=== PATIENT | female | born 1935 | race Caucasian/White ===

== ENCOUNTER 2017-05-02 16:16 | Inpatient (IN) | payer OTHER ==
[2017-05-02] MEDS ORDERED: NS 1,000 ML IV ONE (17:17)
[2017-05-02] MEDS ORDERED: PANTOPRAZOLE SODIUM 40 MG in NS 100 ML IV ONE (17:18)
--- NOTE | 2017-05-02 17:21 | EDPHY ---
H & P Time Seen by Provider: 05/02/17 16:45 HPI/ROS: CHIEF COMPLAINT: Black diarrhea HISTORY OF PRESENT ILLNESS: This 82-year-old woman is on warfarin for atrial fibrillation. She presents with black stools and diarrhea since Tuesday morning 48 hours ago. It is associated with a little bit more dyspnea on exertion than usual but no abdominal pain or vomiting. No red blood per rectum. Symptoms moderate. 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 No aspirin or nonsteroidals. Diarrhea moderate, and not better or worse with anything. REVIEW OF SYSTEMS: Eye: no change in vision ENT: no sore throat Cardiac: no chest pain or syncope Pulmonary: no cough or SOB Abdomen: HPI, Musculoskeletal: Bilateral pedal edema and venous stasis changes, chronic Skin: no rash Neuro: no headache Constitutional: no fever : no urinary symptoms A comprehensive 10 point review of systems is otherwise negative aside from elements mentioned in the history of present illness. PAST MEDICAL HISTORY: Hypertension and atrial fibrillation Social history: Here with her daughter General Appearance: Alert and conversant, cooperative. Eyes: No scleral icterus. ENT, Mouth: Normal mucous membranes. Respiratory: Normal respiratory effort, breath sounds equal, lungs are clear to auscultation. Cardiovascular: Distant heart sounds, no murmur. Gastrointestinal: Abdomen is soft and non tender. Rectal exam shows black stool sent for Hemoccult. Neurological: Alert and oriented x3. Normally conversant. Face symmetric, normal movement and sensation in all extremities. Skin: Warm and dry, no rashes. Musculoskeletal: 3 to 4+ bilateral peripheral edema with some venous stasis changes, chronic. Psychiatric: Not agitated. Emergency Department course/MDM: Patient presents with signs and symptoms of acute upper gastrointestinal bleed. PCP is Mercedes Galeana. Protonix 40 mg IV, type and screen, hematocrit. Admit for upper endoscopy. 1728: Hematocrit on February 28 is 45, today it is 32. Smoking Status: Former smoker Constitutional: Initial Vital Signs Temperature (C) 37 C 05/02/17 16:17 Heart Rate 94 05/02/17 16:17 Respiratory Rate 18 05/02/17 16:17 Blood Pressure 136/74 H 05/02/17 16:17 O2 Sat (%) 97 05/02/17 16:17 O2 Delivery Mode Room Air Allergies/Adverse Reactions: Penicillins Allergy (Mild, Verified 05/02/17 16:27) Rash lisinopril Allergy (Verified 05/02/17 17:35) cough Home Medications: Medication Instructions Recorded Amiloride [Amiloride 5 MG (RX)] 10 mg PO DAILY 05/02/17 Aspirin EC [Aspirin EC 81 mg (*)] 81 mg PO DAILY 05/02/17 Bimatoprost [Lumigan] 1 drop EACHEYE HS 05/02/17 Diclofenac 0.1% [Voltaren 0.1% (*)] 1 drops LEFTEYE BID 05/02/17 Herbals/Supplements -Info Only 1 ea PO DAILY 05/02/17 Hydrochlorothiazide [HCTZ (*)] 25 mg PO DAILY 05/02/17 Metoprolol Succinate 50 mg PO DAILY 05/02/17 Multivitamins [Multivitamin (*)] 1 each PO DAILY 05/02/17 Ofloxacin [Ofloxacin] 1 drop RTEYE QID 05/02/17 Potassium Cl [Klor-Con 20 meq (*)] 20 meq PO DAILY 05/02/17 Vit A/Vit C/Vit E/Zinc/Copper 1 each PO DAILY 05/02/17 [Preservision Tablet] Warfarin Sodium [Coumadin 5MG (*)] 5 mg PO DAILY16 05/02/17 amLODIPine BESYLATE [Norvasc 5 mg 5 mg PO DAILY 05/02/17 (*)] prednisoLONE ACET 1% [Pred Forte 1 drops RTEYE QID 05/02/17 1% (*)] Medical Decision Making Differential Diagnosis: Differential for black stools considered including but not limited to food related, medication side effect, upper GI bleed, lower GI bleed. Consult/Admit Bed Type: [facility] 1735, [facility] 2046 - Data Points Laboratory Results: Laboratory Results 05/02/17 17:05 05/02/17 17:05 05/02/17 05/02/17 05/02/17 17:05 17:05 17:05 WBC 8.59 10^3/uL 10^3/uL (3.80-9.50) RBC 3.44 10^6/uL L 10^6/uL (4.18-5.33) Hgb 10.7 g/dL L g/dL (12.6-16.3) Hct 32.9 % L % (38.0-47.0) MCV 95.6 fL fL (81.5-99.8) MCH 31.1 pg pg (27.9-34.1) MCHC 32.5 g/dL g/dL (32.4-36.7) RDW 13.8 % % (11.5-15.2) Plt Count 193 10^3/uL 10^3/uL (150-400) MPV 8.9 fL fL (8.7-11.7) Neut % (Auto) 63.9 % % (39.3-74.2) Lymph % (Auto) 26.0 % % (15.0-45.0) Cass % (Auto) 8.3 % % (4.5-13.0) Eos % (Auto) 0.5 % L % (0.6-7.6) Baso % (Auto) 0.8 % % (0.3-1.7) Nucleat RBC Rel Count 0.0 % % (0.0-0.2) Absolute Neuts (auto) 5.50 10^3/uL 10^3/uL (1.70-6.50) Absolute Lymphs (auto) 2.23 10^3/uL 10^3/uL (1.00-3.00) Absolute Monos (auto) 0.71 10^3/uL 10^3/uL (0.30-0.80) Absolute Eos (auto) 0.04 10^3/uL 10^3/uL (0.03-0.40) Absolute Basos (auto) 0.07 10^3/uL 10^3/uL (0.02-0.10) Absolute Nucleated RBC 0.00 10^3/uL 10^3/uL (0-0.01) Immature Gran % 0.5 % % (0.0-1.1) Immature Gran # 0.04 10^3/uL 10^3/uL (0.00-0.10) PT 23.9 SEC H SEC (12.0-15.0) INR 2.12 H (0.83-1.16) APTT 32.6 SEC SEC (23.0-38.0) Sodium 139 mEq/L mEq/L (134-144) Potassium 3.7 mEq/L mEq/L (3.5-5.2) Chloride 103 mEq/L mEq/L (97-110) Carbon Dioxide 27 mEq/l mEq/l (22-31) Anion Gap 9 mEq/L mEq/L (8-16) BUN 25 mg/dL H mg/dL (7-23) Creatinine 0.9 mg/dL mg/dL (0.6-1.0) Estimated GFR > 60 Glucose 141 mg/dL H mg/dL (70-100) Calcium 9.8 mg/dL mg/dL (8.5-10.4) Medications Given: Discontinued Medications Sodium Chloride (Ns) 1,000 mls @ 0 mls/hr IV ONCE ONE; Wide Open PRN Reason: Protocol Stop: 05/02/17 17:18 Last Admin: 05/02/17 17:28 Dose: 1,000 mls Pantoprazole Sodium 40 mg/ (Sodium Chloride) 100 mls @ 200 mls/hr IV EDNOW ONE Stop: 05/02/17 17:47 Last Admin: 05/02/17 17:51 Dose: 100 mls Departure - Departure Disposition: [facility] Inpatient Acute Clinical Impression: Acute upper GI bleed Condition: Good
[2017-05-02 17:24] LABS: % IMMATURE GRANULYOCYTES 0.5 % (0.0-1.1); ABSOLUTE IMMATURE GRANULOCYTES 0.04 10^3/uL (0.00-0.10); ADD DIFF? NO; ADD MORPH? NO; ADD SCAN? NO; ATYPICAL LYMPHOCYTE FLAG 0 (0-99); FRAGMENT RBC FLAG 0 (0-99); HEMATOCRIT 32.9 % (38.0-47.0); HEMOGLOBIN 10.7 g/dL (12.6-16.3); LEFT SHIFT FLG 0 (0-99); LIPEMIA HEMOLYSIS FLAG 80 (0-99); MEAN CELL HEMOGLOBIN 31.1 pg (27.9-34.1); MEAN CELL HEMOGLOBIN CONCENTR. 32.5 g/dL (32.4-36.7); MEAN CELL VOLUME 95.6 fL (81.5-99.8); MEAN PLATELET VOLUME 8.9 fL (8.7-11.7); PLATELET CLUMPS FLAG 0 (0-99); PLATELET COUNT 193 10^3/uL (150-400); RED BLOOD CELL COUNT 3.44 10^6/uL (4.18-5.33); RED CELL DISTRIBUTION WIDTH 13.8 % (11.5-15.2)
[2017-05-02 17:32] LABS: INR 2.12 (0.83-1.16); PROTIME(PATIENT) 23.9 SEC (12.0-15.0)
[2017-05-02 17:33] LABS: APTT 32.6 SEC (23.0-38.0)
[2017-05-02 17:35] LABS: ANION GAP 9 mEq/L (8-16); CALCIUM 9.8 mg/dL (8.5-10.4); CARBON DIOXIDE 27 mEq/l (22-31); CHLORIDE 103 mEq/L (97-110); CREATININE 0.9 mg/dL (0.6-1.0); GLOMERULAR FILTRATION RATE > 60; GLUCOSE 141 mg/dL (70-100); POTASSIUM 3.7 mEq/L (3.5-5.2); SODIUM 139 mEq/L (134-144)
[2017-05-02] MEDS ORDERED: ACETAMINOPHEN 325 MG TAB PO PRN (18:53)
[2017-05-02] MEDS ORDERED: ONDANSETRON 4 MG/2 ML VIAL IVP PRN (18:53)
[2017-05-02] MEDS ORDERED: PROMETHAZINE HCL 25 MG/ML INJ IVP PRN (18:53)
[2017-05-02] MEDS ORDERED: PHYTONADIONE 2.5 MG/2.5 ML ORAL UDL PO ONE (18:57)
[2017-05-02] MEDS ORDERED: PHYTONADIONE 10 MG in NS 50 ML IV ONE (19:44)
[2017-05-02] MEDS: PHYTONADIONE 2.5 MG/2.5 ML ORAL UDL PO ONE ×2 (20:17→22:26)
--- NOTE | 2017-05-02 20:19 | GHP ---
[f rep st] HISTORY AND PHYSICAL DATE OF ADMISSION: 05/02/2017 CHIEF COMPLAINT: Black stools. HISTORY OF PRESENT ILLNESS: This is an 82-year-old female with history of atrial fibrillation on wa rfarin, who presented to the emergency department with black stools. She says that she developed asencio ving black stools yesterday and had between 8 and 10 bouts of watery, black diarrhea. This was not associated with any abdominal pain. She denies any NSAID use. She does take a baby aspirin per day . This has never happened to her before. Today, she had 3-4 black stools and still has not had any belly pain. She denies any chest pain. S he denies any dizziness or weakness. She came into the emergency department for further evaluation. PAST MEDICAL HISTORY: 1. Hypertension. 2. Atrial fibrillation on Coumadin. 3. Glaucoma. PAST SURGICAL HISTORY: 1. Cholecystectomy. 2. Hysterectomy. 3. Appendectomy. 4. Tonsillectomy. 5. Cataract surgery. HOME MEDICATIONS: Reviewed, refer to Info for details. ALLERGIES: Penicillin and lisinopril. SOCIAL HISTORY: She lives independently in [place]. She denies any alcohol, tobacco, or illicit drug use. She is a former smoker. FAMILY HISTORY: Reviewed and noncontributory. REVIEW OF SYSTEMS: A comprehensive 10-point review of systems was done and is negative except for a s mentioned in the HPI. PHYSICAL EXAMINATION: VITAL SIGNS: Blood pressure 120/65, pulse 72, respiratory rate 16, O2 satura tion 95% on room air. Temperature afebrile. GENERAL: No acute distress. HEART: S1, S2. LUNGS: Clear. No wheezes, rales, or rhonchi. ABDOMEN: Soft, nontender, nondistended. No guarding or re bound tenderness. Normoactive bowel sounds. EXTREMITIES: No clubbing or cyanosis. NEURO: Crania l nerves 2-12 grossly intact. No focal motor or sensory deficits. SKIN: Clear. No rashes. She h as no petechiae. HEAD: Normocephalic, atraumatic. EYES: PERRLA. NECK: Supple. No lymphadenopa thy. DIAGNOSTICS: WBC is 8.59, hemoglobin 10.7, hematocrit 32.9, platelets 193. INR 2.12. Sodium 139, potassium 3.7, chloride 103, BUN 25, creatinine 0.9, glucose 141. Stool occult blood was positive. ASSESSMENT AND PLAN: 1. This is an 82-year-old female on warfarin and aspirin with a history of atrial fibrillation, pre senting with melena due to suspected upper gastrointestinal bleed. Plan: Currently, the patient is hemodynamically stable. Dr. Leal in the emergency department ordered FFP. We will also give her a dose of vitamin K. I discussed the case with Dr. Jewell of in the [facility]. Will plan for endo scopy in the morning unless she shows signs and symptoms of significant bleeding overnight. We will monitor H and H q.6 hours. Also repeat INR in the morning. 2. History of hypertension. Plan: Given the patient's current bleeding and suspected hypovolemia, we will hold her home dose of hydrochlorothiazide, amiloride, Norvasc, and metoprolol. Her blood p ressure medicines may need to be restarted as indicated. 3. The patient will be admitted to the hospital under inpatient status. Chemical DVT prophylaxis i s contraindicated in the setting of acute blood loss. We will order SCDs while in bed. /[id number]/MODL
[2017-05-02] MEDS ORDERED: BIMATOPROST 0.01% 2.5 ML OPHT.BTL EACHEYE SCH (21:00)
[2017-05-02] MEDS ORDERED: OFLOXACIN 0.3% SOLN PREPACK OPHT.BTL TAKEHOME SCH (21:00)
[2017-05-02] MEDS ORDERED: DICLOFENAC 0.1% 2.5 ML OPHT.BTL LEFTEYE SCH (21:00)
[2017-05-02] MEDS: PANTOPRAZOLE SODIUM 40 MG in NS 100 ML IV SCH (22:24)
[2017-05-02] MEDS: OFLOXACIN 0.3% 5ML OPHT DROPS RTEYE SCH (22:27)
[2017-05-02] MEDS: prednisoLONE ACET 1% 5 ML OPHT.BTL RTEYE SCH (22:28)
[2017-05-03 01:10] LABS: HEMATOCRIT 28.2 % (38.0-47.0); HEMOGLOBIN 9.3 g/dL (12.6-16.3)
[2017-05-03 05:33] LABS: HEMATOCRIT 28.2 % (38.0-47.0); HEMOGLOBIN 9.2 g/dL (12.6-16.3)
[2017-05-03 05:43] LABS: INR 2.09 (0.83-1.16); PROTIME(PATIENT) 23.6 SEC (12.0-15.0)
[2017-05-03 05:48] LABS: ANION GAP 8 mEq/L (8-16); CALCIUM 9.5 mg/dL (8.5-10.4); CARBON DIOXIDE 24 mEq/l (22-31); CHLORIDE 106 mEq/L (97-110); CREATININE 0.8 mg/dL (0.6-1.0); GLOMERULAR FILTRATION RATE > 60; GLUCOSE 104 mg/dL (70-100); POTASSIUM 3.6 mEq/L (3.5-5.2); SODIUM 138 mEq/L (134-144)
[2017-05-03] MEDS: OFLOXACIN 0.3% 5ML OPHT DROPS RTEYE SCH ×3 (06:06→16:17)
[2017-05-03] MEDS: prednisoLONE ACET 1% 5 ML OPHT.BTL RTEYE SCH ×3 (06:06→16:15)
[2017-05-03] MEDS ORDERED: MIDAZOLAM 2 MG/2 ML VIAL ONE (06:19)
[2017-05-03] MEDS ORDERED: fentaNYL 100 MCG/2 ML INJ ONE (06:20)
--- NOTE | 2017-05-03 07:15 | PDHPUP ---
History & Physical Update H&P update statement: This history and physical update is based on an assessment of the patient which was completed after admission or registration (within 24 hours), but prior to the surgery/procedure. H&P update: H&P reviewed & patient examined, no change in patient's condition since H&P completed
--- NOTE | 2017-05-03 07:17 | POSTOPPROG ---
Post Op Note Date of Operation: 05/03/17 Surgeon: Jordan Jewell Anesthesia: IV Sedation Pre-op Diagnosis: GI Bleed Post-op Diagnosis: Pre-pyloric ulcer Indication: GI Bleed Procedure: EGD with biopsy Findings: small pre-pyloric ulcer Inf/Abcess present in the surg proc area at time of surgery?: No
--- NOTE | 2017-05-03 07:20 | PDPROPOC ---
Sedation Plan of Care Sedation Plan of Care: vital signs stable, mental status noted, patient educated of risks, benefits, alternatives, patient can tolerate sedation ASA Classification: ASA 3 Mallampati Score: Class 3 332 Rule: 332
[2017-05-03 07:43] VITALS: PULSE 91; RESP 18
[2017-05-03] MEDS: PANTOPRAZOLE SODIUM 40 MG in NS 100 ML IV SCH (08:06)
[2017-05-03] MEDS ORDERED: DICLOFENAC 0.1% 2.5 ML OPHT.BTL RTEYE SCH (09:00)
[2017-05-03] MEDS ORDERED: MULTIVITAMINS 1 EACH TAB PO SCH (09:00)
--- NOTE | 2017-05-03 10:11 | HOSPPROG ---
Hospitalist Progress Note Assessment/Plan: Patient is an 82-year-old female with a history of atrial fibrillation chronically on Coumadin. She presented to the emergency department with black stools. Today is my 1st encounter with the patient. Chart reviewed. * upper GI bleed She is status post EGD with biopsy. She has a small pre pyloric ulcer Hemoglobin hematocrit are stable this morning Ppi Blood pressure is 118/78 * atrial fibrillation With vitamin K and FFP she has an INR of 2.09 * hypertension bp 118/78 many of her meds on hold *Pressure injury/ bilateral ischium: POA wound care seeing *Plan: will ask PT, OT to evaluate/ I think she would benefit from home care. Will touch base with Dr Jewell about f/u and when ok to resume coumadin. She will likely be dc later today because of early recovery. Subjective: Tee is feeling fine/ anxious to go home. Objective: Vital Signs Temp Pulse Resp BP Pulse Ox 36.6 C 91 18 118/78 93 05/03/17 07:41 05/03/17 07:41 05/03/17 07:41 05/03/17 07:41 05/03/17 07:41 Laboratory Results 05/03/17 05:06 05/03/17 05:06 05/02/17 05/03/17 05/04/17 05:59 05:59 05:59 Intake Total 1210 150 Balance 1210 150 PT 23.6 SEC (12.0-15.0) H 05/03/17 05:06 INR 2.09 (0.83-1.16) H 05/03/17 05:06 - Physical Exam Constitutional: no apparent distress, obese Eyes: PERRL Ears, Nose, Mouth, Throat: hearing normal Cardiovascular: regular rate and rhythym, edema (bilateral lower ext) Respiratory: no respiratory distress, reduced air movement Skin: warm Musculoskeletal: generalized weakness Neurologic: AAOx3 Psychiatric: interacting appropriately ICD10 Worksheet Patient Problems: Problems Problem Status Onset Acute upper GI bleed Acute
--- NOTE | 2017-05-03 10:46 | GCON ---
[f rep st] CONSULTATION CHIEF COMPLAINT: An 82-year-old woman with melenic stools. HISTORY OF PRESENT ILLNESS: I was asked to see this very pleasant 82-year-old woman in consultation by Dr. Doc Calderon for symptoms of melena. She has a history of atrial fibrillation, has been on wa rfarin. She is also on metoprolol. She had noticed several episodes of black, melenic diarrhea sto ols the day of admission. She is having 8-12 bouts of watery black diarrhea. She had no associated abdominal pain or discomfort. She also denied any lightheadedness or dizziness. She has not had a ny prior history of GI bleeding. She does not have a history of nonsteroidal use. She has had no o ther recent change in bowel habits. She denies any nausea or vomiting. She has had a previous hist ory of colon polyps. Has undergone previous colonoscopy. She also had a prior history of abnormal liver function tests. Serologic workup was negative and most recent liver function tests have been normal. She has been hemodynamically stable on admission and she was noted to have a slightly low h ematocrit of 32.9, lower than previous outpatient hematocrits. The patient presents today now for fu rther evaluation. PAST MEDICAL HISTORY: 1. Hypertension. 2. Atrial fibrillation on chronic anticoagulation with Coumadin. 3. Glaucoma. PRIOR SURGICAL HISTORY: 1. Cholecystectomy. 2. Hysterectomy. 3. Appendectomy. 4. Tonsillectomy. 5. Adenectomy. 6. Cataract surgery. ALLERGIES: Penicillin and Zestril. MEDICATIONS PRIOR TO ADMISSION: Amlodipine 5 mg daily, warfarin 5 mg daily, metoprolol 50 mg daily, hydrochlorothiazide 25 mg daily, multivitamins, aspirin 81 mg daily, amiloride 10 mg daily. SOCIAL HISTORY: Lives independently in [place]. She is a nonsmoker, nondrinker. She is, hermilo stovall, a prior smoker. FAMILY HISTORY: Negative as it pertains to chief complaint. REVIEW OF SYSTEMS: Negative for 10 systems other than mentioned in HPI. PHYSICAL EXAM: VITAL SIGNS: 145/69, respiratory rate 16, heart rate of 86, 97% sat. Afebrile at 3 6.7. GENERAL: A very pleasant woman in no acute distress. HEENT: Normocephalic, atraumatic. EOM I. NECK: Supple. No cervical adenopathy. No thyromegaly. LUNGS: Clear. CARDIAC: Normal S1, S 2 without murmur, irregular, irregular. ABDOMEN: Nontender. Normal bowel sounds. No hepatospleno megaly appreciated. EXTREMITIES: Erythema, venous stasis changes, 1+ edema. No clubbing or cyanos is. SKIN: Warm, dry, intact with some venous stasis changes mentioned in lower extremity. NEURO: Nonfocal. Cranial nerves 2-12 intact. PSYCHIATRIC: Alert and oriented x3 with normal affect. LABORATORY DATA: Hemoglobin 9.2, hematocrit 28.2. PTT of 23.6 with an INR of 2.09. Serum chemistr y is 138, potassium 3.6, chloride 106, CO2 24, BUN of 18, creatinine 0.8, blood sugar 105. IMPRESSION: An 82-year-old woman with history of atrial fibrillation, on chronic anticoagulation. Patient with melenic stool and drop in hematocrit, suggestive of upper GI bleed. RECOMMENDATIONS: 1. The patient to be admitted to the hospital. 2. Serial hemoglobin and hematocrit. 3. I would recommend holding the Coumadin. 4. Patient was given low-dose vitamin K to help reverse the coagulopathy. 5. Proceed with diagnostic and potentially therapeutic endoscopy. 6. We will follow with you. /[id number]/MODL
--- NOTE | 2017-05-03 11:41 | GPN ---
[f rep st] PROCEDURE NOTE PROCEDURE: Esophagogastroduodenoscopy with biopsy. PREOPERATIVE DIAGNOSES: 1. Melena. 2. Gastrointestinal bleed. POSTOPERATIVE DIAGNOSES: 1. Superficial small prepyloric ulcer, bland, white base without stigmata of bleeding status post b iopsy. 2. Mild gastritis. 3. Otherwise normal upper endoscopy. INDICATIONS: 82-year-old woman history of anticoagulation and atrial fibrillation on chronic Coumad in. She also takes metoprolol. She had been having several episodes of melenic stool yesterday wit h drop in hematocrit. She presents now for upper endoscopy. She has no prior history of GI bleedin g. She has no history of NSAID use other than low-dose aspirin. PHYSICAL EXAMINATION: VITAL SIGNS: Stable. LUNGS: Clear. CARDIAC: Normal S1, S2 without murmur with irregular irregular rhythm. PERMIT: Procedure was explained to patient. Risks and benefits of procedure outlined to patient. Informed consent was obtained. PREOPERATIVE MEDICATIONS: Fentanyl 100 mcg, Versed 4 mg. FINDINGS OF PROCEDURE: Patient placed in the left lateral decubitus position. The GIF-180 video en doscope was passed in the oropharynx under direct vision into the proximal esophagus. Esophagus nor mal. GE junction at 44 cm. Endoscope was passed in the stomach. There was no evidence of any bloo d contents in the stomach. Endoscope was passed through the pylorus in the 1st and 2nd portion of t he duodenum. Duodenal sweep was normal. Endoscope was brought back in the stomach. Retroflexed vi ew of the stomach revealed a normal angularis, fundus, and cardia. Endoscope was un-retroflexed. O n the greater curve in the prepyloric area was a small, 4-5 mm superficial ulcer with some surroundi ng edema. There was bland white base. No stigmata of recent bleeding. Biopsies of prepyloric ulce r were obtained. Endoscope was then withdrawn. IMPRESSION: Small superficial ulcer in the prepylorus, status post biopsy. RECOMMENDATIONS: 1. Would continue to hold Coumadin. 2. Continue follow serial H and H. 3. Advance to regular diet. 4. If patient clinically doing well, may be discharged later today. 5. As she is H pylori positive, would recommend treatment with antibiotics for H pylori. Patient d oes have a penicillin allergy. Thank you for allowing me on the participate in the care of this patient. /[id number]/MODL
[2017-05-03 11:50] VITALS: BP 138/76; TEMP 98.1; O2SAT 91
[2017-05-03 12:24] LABS: HEMATOCRIT 33.1 % (38.0-47.0); HEMOGLOBIN 10.8 g/dL (12.6-16.3)
--- NOTE | 2017-05-03 14:00 | WOCRNPDOC ---
NERY Advanced Assessment Note - Skin Integrity Problem, Advanced Assess Left Buttock Dressing Type: Open to Air Exudate Amount: Scant Exudate Color: Red Exudate Characteristic(s): Bloody Integumentary Issue Intervention: Barrier Cream Applied (Cavilon skin prep to immediate area; Calmoseptine (from patient's supplies) to intact scar tissue) Meg Wound Tissue: Scarred (cheloid) Wound Bed Color: Red Wound Bed Constitution: Smooth Tissue Wound Edges: Epithelizing, Scarred Site Odor: None Site Measurement - Head-to-Toe Length X Width X Depth (cm): 0.1 cm zaida x 0.01 Pressure Injury Present on Admit: Yes (Daughter reports that patient "had a very deep ulcer there..." at home) Skin Integrity Problem Comment: Pinpoint-sized area of superficial loss of scar tissue on re-surfaced "very deep" (per daughter) pressure injury, which daughter describes as having "finally healed after using Medihoney that her PCP' s nurse told me to use on it." Site has the appearance of possible hypergranulation in the healing process. Discussed vulnerability of scar tissue to reinjury with patient and daughter, and importance of preventive care. Encouraged off-loading measures and provided with a waffle air cushion. Saw patient with Luis Lema NP. Report to JÚNIOR Deluna. Bilateral Ischial Tuberosity Pressure Injury Dressing Type: Open to Air Exudate Amount: Scant Exudate Characteristic(s): Sanguinous Integumentary Issue Intervention: Dressing Applied (Cavilon skin protectant; Medihoney gel; Allevyn) Meg Wound Tissue: Erythema, Scarred Meg Wound Swelling: None Wound Bed Color: [place] Wound Bed Constitution: Smooth Tissue Wound Edges: Epithelizing, Scarred Site Odor: None Site Measurement - Head-to-Toe Length X Width X Depth (cm): L=0.5 x 0.8 x 0.1. R= 0.5 zaida x 0.1 Pressure Injury Present on Admit: Yes (reported by daughter) Skin Integrity Problem Comment: Visualized bilateral small, clean, mostly resurfaced injuries at bilateral ischia with Luis Lema NP. Daughter reports that she has been caring for these bilateral injuries at home using Medihoney gel and gauze recommended by nurse at patient's PCP's office, but has been having difficulty maintaining clean, dry dressings 2/2 urine. Cleansed sites using sterile NS and gauze, applied dabs of Medihoney gel, and covered with Allevyn dressings. Applied Calmoseptine to intact meg and buttocks. Teaching to patient and daughter.
--- NOTE | 2017-05-03 15:00 | PDIAF ---
- Diagnosis Diagnosis: small peptic ulcer/ gi bleed/ afib Code Status: Full Code - Medication Management Discharge Medications: Medications to Continue on Transfer Amiloride 10 mg PO DAILY 05/02/17 [Last Taken 05/02/17] Aspirin EC [Aspirin EC 81 mg (*)] 81 mg PO DAILY 05/02/17 [Last Taken 05/01/17] Bimatoprost [Lumigan] 1 drop EACHEYE HS 05/02/17 [Last Taken 05/01/17] Diclofenac 0.1% [Voltaren 0.1% (*)] 1 drops LEFTEYE BID 05/02/17 [Last Taken Unknown] Herbals/Supplements -Info Only 1 ea PO DAILY 05/02/17 [Last Taken Unknown] Hydrochlorothiazide [HCTZ (*)] 25 mg PO DAILY 05/02/17 [Last Taken 05/02/17] Metoprolol Succinate 50 mg PO DAILY 05/02/17 [Last Taken 05/02/17] Multivitamins [Multivitamin (*)] 1 each PO DAILY 05/02/17 [Last Taken Unknown] Ofloxacin 1 drop RTEYE QID 05/02/17 [Last Taken Unknown] Potassium Cl [Klor-Con 20 meq (*)] 20 meq PO DAILY 05/02/17 [Last Taken 05/02/17 ] Vit A/Vit C/Vit E/Zinc/Copper [Preservision Areds Tablet] 1 each PO DAILY [Last Taken 05/02/17] Warfarin Sodium [Coumadin 5MG (*)] 5 mg PO DAILY16 05/02/17 [Last Taken 05/01/17 ] amLODIPine BESYLATE [Norvasc 5 mg (*)] 5 mg PO DAILY 05/02/17 [Last Taken ] prednisoLONE ACET 1% [Pred Forte 1% (*)] 1 drops RTEYE QID 05/02/17 [Last Taken Unknown] Acetaminophen [Tylenol 325mg (*)] 650 mg PO Q6 PRN #0 tab 05/03/17 [Last Taken Unknown] Pantoprazole Sodium [Protonix 40mg (*)] 40 mg PO BID #60 tab 05/03/17 [Last Taken Unknown] Discharge Medications: Refer to the Discharge Home Medication list for PRN reason. - Orders Services needed: Home Care, Registered Nurse, Physical Therapy, Occupational Therapy Home Care Face to Face: I certify that this patient was under my care and that I had the required [id number] encounter meeting the encounter requirements on the discharge day. My findings support the fact that the patient is homebound as defined in CMS Chapter 7 Medicare Benefits Manual 30.1.1, The condition of the patient is such that there exists a normal inability to leave home and consequently, leaving home would require a considerable and taxing effort. Diet Recommendation: no restrictions on diet Diet Texture: Regular Texture Diet Wound Care Instructions: Dressing changes to lower buttocks (ischia): 1. Clean gently with plain warm water (may use a gentle soap, if needed). Rinse well. 2. Apply a tiny dab of Medihoney (only while wound(s) are still open). 3. Cover with Allevyn (or similar silicone dressing). Apply thin layer of Calmoseptine to intact skin as needed. Use waffle air cushion in chair; Shift from side to side at least every half hour, or stand up to relieve pressure. Please contact your Primary Care Provider or [facility] outpatient [facility] for an appointment, at [phone], for any new wound care concerns. Magi Bliss RN/[facility] In-patient Wound Care Team Activity/Weight Bearing Restrictions: patient needs strengthening exercises for endurance and mobility Additional: Prescription for protonix was sent to your pharmacy / [facility] in [place]. HOLD COUMADIN AND ASPIRIN X 2 WEEKS. f/u with Dr Mendoza and let him know you have a small peptic ulcer and that recommendation from Dr Jewell was to hold Coumadin and aspirin if ok with him. Follow up w [facility], Dr Walls or one of the physician assistants/see in 2 weeks. Get a repeat hemoglobin and hematocrit on . Follow up with your primary care provider to be sure you remain stable. - Labs/Radiology HCT/HGB Date: 05/05/17 - Follow Up Care Current Providers and Referrals: WILLA ANDREWS [Primary Care Provider] - As per Instructions Jordan Jewell MD [Medical Doctor] - Ronit Walls MD [Medical Doctor] -
[2017-05-03] MEDS ORDERED: PANTOPRAZOLE SODIUM 40 MG TAB PO SCH (21:00)
--- NOTE | 2017-05-03 22:12 | GDS ---
[f rep st] DISCHARGE SUMMARY DISCHARGE DIAGNOSES: 1. Upper gastrointestinal bleed. 2. Atrial fibrillation. 3. Hypertension. 4. Pressure injury at the bilateral ischia areas present on admission. HISTORY OF PRESENT ILLNESS: Briefly, the patient is an 82-year-old female, with a history of atrial fibrillation, chronically on Coumadin. She presented to the emergency department with black stools. She was seen and evaluated by Dr. Jewell, and had an EGD with biopsy performed, which showed a superficial pre-pyloric ulcer, as well as mild gastritis. She has done well throughout her stay. Recommendations were for her to stay off her oral anticoagulation and aspirin therapy for the next 2 weeks. She will follow up with Dr. Mendoza in regard to this. The patient was discharged today because of a quick and early recovery. HOSPITAL COURSE: 1. Upper gastrointestinal bleed. She is status post EGD and biopsy. Hemoglobin and hematocrit are stable. Will continue her on a PPI twice daily for 2 weeks and then daily. 2. Atrial fibrillation. She was given vitamin K and FFP to reverse her Coumadin. Her INR is 2.09 today. 3. Hypertension. Blood pressure is stable. 4. Pressure injury on the bilateral ischia, this present on admission. PENDING LABS: H. pylori is pending. CONDITION AT DISCHARGE: Stable. Blood pressure is 118/78, O2 saturations on room air 93%, respiratory rate is 18, pulse is 91, temperature is 36.6 Celsius. MEDICATIONS AT DISCHARGE: Please see the EMR. DISCHARGE INSTRUCTIONS: 1. To hold Coumadin and aspirin for the next 2 weeks, and to get an okay with Cardiology. I also spoke with them, and they felt this was okay at this time. 2. To take the PPI twice daily. 3. Home care to see her and further evaluate her pressure ulcer. Greater than 30 minutes discharging and coordinating care. /[id number]/MODL MTDD
== END 2017-05-03 16:38 | disposition home or self-care (01) | DRG 379 ==
LOC: F3E 18:34
PROVIDERS: ADMIT Family Medicine; ATTEND Hospitalist
PROC: 0DB78ZX Excision of Stomach, Pylorus, Via Natural or Artificial Opening Endoscopic, Diagnostic (ICD-10-PCS; principal; 2017-05-03 06:40)
DX: K92.2 Gastrointestinal hemorrhage, unspecified (principal); K25.9 Gastric ulcer, unspecified as acute or chronic, without hemorrhage or perforation; K25.4 Chronic or unspecified gastric ulcer with hemorrhage; I48.91 Unspecified atrial fibrillation; K29.70 Gastritis, unspecified, without bleeding; Z79.01 Long term (current) use of anticoagulants; I10 Essential (primary) hypertension; Z87.891 Personal history of nicotine dependence; Z79.82 Long term (current) use of aspirin; H40.9 Unspecified glaucoma; L98.419 Non-pressure chronic ulcer of buttock with unspecified severity
CPT/HCPCS: 96365; 97116-GP; 97162-GP; 97166-GO; 97530-GO; G8978-GP-CJ; G8979-GP-CI; G8987-GO-CJ; G8988-GO-CI; J0171; J2250; J3010; J3430

== ENCOUNTER → 2017-07-04 | Outpatient (CLI) | payer OTHER | LOC: BHFA 14:45 | PROVIDERS: ATTEND Internal Medicine Cardiovascular Disease | DX: I34.0 Nonrheumatic mitral (valve) insufficiency (principal); I48.91 Unspecified atrial fibrillation ==

== ENCOUNTER → 2017-07-22 | Outpatient (CLI) | payer OTHER ==
[~2017-07-22] MED LIST: IOPAMIDOL (ISOVUE 370) 100 ML BTL IV ONE
== END ==
LOC: FIMAGING 12:52
PROVIDERS: ATTEND Internal Medicine Cardiovascular Disease
DX: I48.91 Unspecified atrial fibrillation (principal); I25.10 Atherosclerotic heart disease of native coronary artery without angina pectoris; I34.0 Nonrheumatic mitral (valve) insufficiency; I77.89 Other specified disorders of arteries and arterioles
CPT/HCPCS: 71275; Q9967

== ENCOUNTER → 2017-07-25 | Outpatient (CLI) | payer OTHER | LOC: BHFA 10:30 | PROVIDERS: ATTEND Internal Medicine Cardiovascular Disease | DX: I48.91 Unspecified atrial fibrillation (principal) ==

== ENCOUNTER → 2017-10-27 | Outpatient (CLI) | payer OTHER | LOC: BHFA 13:30 | PROVIDERS: ATTEND Internal Medicine Cardiovascular Disease | DX: I48.91 Unspecified atrial fibrillation (principal) ==

== ENCOUNTER → 2018-07-18 | Outpatient (CLI) | payer OTHER | LOC: BHFA 14:00 | PROVIDERS: ATTEND Internal Medicine Cardiovascular Disease | DX: I48.91 Unspecified atrial fibrillation (principal); I34.0 Nonrheumatic mitral (valve) insufficiency ==